=== PATIENT | female | born 1955 | race Caucasian/White ===

== ENCOUNTER 2022-06-12 12:16 | Emergency (ER) | payer OTHER ==
[~2022-06-12] VITALS: Ht 160 cm; Wt 60.3 kg
== END 2022-06-12 18:07 | disposition home or self-care (01) ==
LOC: ER 12:16
DX: J45.901 Unspecified asthma with (acute) exacerbation (principal); I10 Essential (primary) hypertension; Z20.822 Contact with and (suspected) exposure to COVID-19